=== PATIENT | male | born 1995 | race Hispanic/Latino ===

== ENCOUNTER 2023-08-03 14:00 | Outpatient (RCR) | payer OTHER, SELFPAY ==
--- NOTE | 2023-07-19 09:13 | PTOPEVAL1 ---
Assessment and note entered by Marshall Lemus, PT Evaluation Information Assessment Status Evaluation Diagnosis Bilateral knee pain Onset April 2023 Subjective Information Reports that he had onset of knee pain about 4 months ago. Has been working out but has pain. 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 Reports that he will occasionally get pain up into his hips. Occasional pain in low back as well. Reported Pain Level Pain Score 8: Self Report Assessment PT Clinical Summary Patient presents with significant mobility restriction in asia ankles and hips. No structural deficits noted in [place] knees. Appears to be mechanical deficits limiting knee mobility and increasing torsional and extension stress on [place]ia knee as source of pain at this time. 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 Plan of Care Interventions Electrical Stimulation,Hot Pack/Cold Pack,Manual Therapy,Neuro Re-education,Therapeutic Activities, Therapeutic Exercise PT Services Indicated Yes Treatment Frequency and 2x/week for 8 visits Duration These treatments will address the objective and functional deficits as defined above. The patient will be advanced safely and appropriately in order for the patient to progress towards his/her prior level of function. Additional exercises will be introduced and as well as a comprehensive home exercise program upon discharge, if needed, ?to ensure carryover of functional gains achieved in the clinic. This treatment plan has been reviewed and agreement upon by the patient.
--- NOTE | 2023-07-19 09:13 | OPREHPOC ---
Outpatient Therapy Plan of Care This is a Multidisciplinary Plan of Care that may contain components documented by all disciplines (PT, OT, and ST.) PT Problem 1 PT Problem #1 Knowledge Deficit PT Goal 1 Goal Morton with HEP Target Visit 4 PT Problem 2 PT Problem #2 Pain PT Goal 1 Goal Report no pain greater than 3/10 with 1 hour+ of standing activity Target Visit 8 PT Problem 3 PT Problem #3 Impaired Flexibility PT Goal 1 Goal Improve asia HS 90/90 flexibility to -20 to reduce posterior kinematic chain pull Target Visit 8 PT Goal 2 Goal Demonstrate minimal restriction with asia piriformis stretch to reduce ER loading of knee with walking and squatting activity Target Visit 8 PT Problem 4 PT Problem #4 Impaired Range of Motion PT Goal 1 Goal Demonstrate 40 degrees of asia hip abduction to reduce medial knee compression with bending and squatting activity Target Visit 8 PT Goal 2 Goal Demonstrate 20# lift x 10 with no increased lateral knee pain Target Visit 8
--- NOTE | 2023-08-07 15:32 | PCPTNOTE ---
pt canceled due to work conflict.
--- NOTE | 2023-08-09 16:00 | PCPTNOTE ---
Pt canceled appt today due to work conflict.
--- NOTE | 2023-08-15 10:48 | PCPTNOTE ---
Pt NS for visit on 08/14/23 LM with upcoming appt date and time.
--- NOTE | 2023-08-16 16:45 | PCPTNOTE ---
Pt no showed 2nd visit today.
--- NOTE | 2023-08-20 13:49 | PCPTNOTE ---
Patient was a No Show/No Call for today's visit.
--- NOTE | 2023-11-26 07:41 | PTOPDC ---
Assessment and note entered by Marshall Lemus, PT Evaluation Information Assessment Status Discharge - Pt Not Present Diagnosis Bilateral knee pain Onset April 2023 Subjective Information Reports that he had onset of knee pain about 4 months ago. Has been working out but has pain. 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 Reports that he will occasionally get pain up into his hips. Occasional pain in low back as well. Assessment PT Clinical Summary Patient last seen for skilled therapy on 08/03/23. Arrived for 3 scheduled appointments. Cancelled/No Show for 4 consecutive appointments. Patient was discharged for non compliance. Please see last treatment note for discharge status. Plan of Care PT Services Indicated
== END 2023-10-02 12:39 | disposition home or self-care (01) ==
LOC: ANHPT 14:00
PROVIDERS: PCP Physician Assistant; Visit Provider Physician Assistant
DX: M25.561 Pain in right knee (principal)
CPT/HCPCS: 97110; 97140; 97161; 99199